=== PATIENT | male | born 1930 | race Caucasian/White ===

== ENCOUNTER 2016-03-01 21:07 | Observation (INO) | payer MEDICARE, OTHER ==
[2016-03-01 22:10] LABS: Basophils % (A) 0 %; CH 30.7; CHCM 34.8; Eosinophils # (A) 0.1 k/uL (0-0.7); Eosinophils % (A) 1 %; HCT 36.6 % (39.0-53.0); HDW 2.26; HGB 12.1 gm/dL (13.0-17.5); Luc # (Auto) 0.18; Luc % (Auto) 3; Lymphocytes # (A) 0.8 k/uL (1.0-4.8); Lymphocytes % (A) 12 %; MCH 29.4 pg (25.0-35.0); MCHC 33.2 g/dL (31.0-37.0); MCV 88.6 fL (80.0-100.0); Mean Platelet Volume 7.8; Monocytes # (A) 0.9 k/uL (0-1.0); Monocytes % (A) 13 %; Neutrophils # (A) 5.2 k/uL (1.3-7.7); Neutrophils % (A) 72 %; RBC 4.13 m/uL (4.30-5.90); WBC 7.2 k/uL (3.8-10.6); WBC (Perox) 7.25
[2016-03-01 22:19] LABS: Calcium 9.2 mg/dL (8.4-10.2); Potassium 3.7 mmol/L (3.5-5.1); Total Bilirubin 0.7 mg/dL (0.2-1.3); Total Protein 6.8 g/dL (6.3-8.2)
--- NOTE | 2016-03-01 22:59 | CT ---
EXAMINATION TYPE: CT brain wo con DATE OF EXAM: 03/01/2016 10:19 PM COMPARISON: 08/10/2015 HISTORY: Patient shows signs of altered mental status. CT DLP: 777.5 mGycm Automated exposure control for dose reduction was used. FINDINGS: There are postsurgical changes in the left parietal temporal area of craniotomy with underlying low d ensity in the left cerebral hemisphere in the left parietal temporal area with encephalomalacia linares es of the brain of chronic nature and is stable. The cortical sulci and ventricles are prominent with age-related atrophic changes of brain with periv entricular white matter ischemic changes with a low density areas. Basal ganglion calcification is no roger bilaterally. The left lateral ventricle is more prominent including temporal horn probably relate d to adjacent postsurgical changes. There is evidence of small lucencies seen in the left zygomatic area soft tissues in the base of the skull in the axial image 1 series 9 and sagittal image 35 and coronal image 33 medial to the left man dibular condyle and is probably related to inflammatory process of oral cavity. This tiny lucencies d oes not appear as pneumocephalus changes. The globes are intact. Mild sinusitis changes of ethmoid sinuses is noted. Mastoid air cells appear grossly unremarkable. IMPRESSION: 1. No acute intracranial hemorrhage, mass effect, or midline shift is seen. 2. Postsurgical changes of craniotomy in the left parietal area. 3. Stable atrophic changes of brain and encephalomalacia changes and postsurgical changes of the brai n. 4. Sinusitis changes. 5. Tiny air collections are suspected in the soft tissues in the base of the skull involving soft tis sues below the level of calvarium medial to the left temporomandibular joint and left mandible condyl e and there is possibility of inflammatory process anterior to the eustachian tube. This does not yair ear as pneumocephalus. A clinical correlation is suggested. A phone report is given to Dr. Mills at the time of the dictation.
[2016-03-01] MEDS ORDERED: AMPICILLIN 2,000 MG in SODIUM CHLORIDE 0.9% 100 ML IVPB STA (23:07)
--- NOTE | 2016-03-01 23:13 | XR ---
EXAMINATION TYPE: XR chest 1V portable DATE OF EXAM: 03/01/2016 10:42 PM COMPARISON: 08/08/2015 HISTORY: Altered mental status TECHNIQUE: Single frontal view of the chest is obtained. Portable study upright FINDINGS: The lower chest is not completely included in the radiograph. Mild chronic interstitial lung changes are suggested bilaterally. Mild atelectatic changes are noted in the right lung base. There is suggestion of mild perihilar pulmonary edema. No definite focal pneu monia is noted. There is moderate cardiomegaly and atherosclerotic calcification in the aortic arch a re present. Moderate to severe arthritic changes in the right shoulder. IMPRESSION: 1. Mild perihilar edema changes and chronic lung changes. 2. Cardiomegaly.
[2016-03-01] MEDS ORDERED: AMPICILLIN-SULBACTAM 3 GM in SODIUM CHLORIDE 0.9% 100 ML IVPB STA (23:18)
[2016-03-01 23:43] LABS: Appearance,Urine Clear (Clear); Bacteria,Urine Rare /hpf; Bilirubin,Urine Negative (Negative); Glucose,Urine (UA) Negative (Negative); Ketones,Urine Negative (Negative); Leukocyte Esterase,Urine Large (Negative); Mucus,Urine Rare /hpf; Nitrite,Urine Positive (Negative); Particle Count 16764; Protein,Urine Trace (Negative); RBC,Urine 2 /hpf (0-5); Specific Gravity,Urine 1.012 (1.001-1.035); Squamous Epithelial Cell,Urine <1 /hpf (0-4); UA Billing (MACRO vs. MICRO) MICRO; Urobilinogen,Urine <2.0 mg/dL (<2.0); WBC,Urine 54 /hpf (0-5)
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
[2016-03-01] MEDS ORDERED: NALOXONE 0.4 MG/ML 1 ML VIAL IV PRN (23:52)
[2016-03-02] MEDS: AMPICILLIN-SULBACTAM 3 GM in SODIUM CHLORIDE 0.9% 100 ML IVPB SCH ×2 (05:41→10:36)
[2016-03-02 08:05] VITALS: BP 156/87; PULSE 92; RESP 19; TEMP 97.7
[2016-03-02 08:33] LABS: Basophils % (A) 0 %; CH 30.4; CHCM 33.7; Eosinophils # (A) 0.1 k/uL (0-0.7); Eosinophils % (A) 1 %; HDW 2.25; HGB 12.1 gm/dL (13.0-17.5); Luc # (Auto) 0.07; Luc % (Auto) 1; Lymphocytes # (A) 0.6 k/uL (1.0-4.8); Lymphocytes % (A) 8 %; MCH 29.6 pg (25.0-35.0); MCHC 32.7 g/dL (31.0-37.0); MCV 90.5 fL (80.0-100.0); Mean Platelet Volume 6.7; Monocytes # (A) 0.5 k/uL (0-1.0); Monocytes % (A) 6 %; Neutrophils # (A) 6.7 k/uL (1.3-7.7); Neutrophils % (A) 84 %; RBC 4.08 m/uL (4.30-5.90); WBC (Perox) 8.64
[2016-03-02] MEDS ORDERED: amLODIPine 10 MG TAB PO SCH (09:00)
[2016-03-02] MEDS ORDERED: levETIRAcetam 500 MG TAB PO SCH (09:00)
[2016-03-02] MEDS ORDERED: MULTIVITAMINS, THERA 1 EACH TAB PO SCH (09:00)
[2016-03-02] MEDS ORDERED: LEVOTHYROXINE 75 MCG TAB PO SCH (09:00)
[2016-03-02] MEDS ORDERED: METOPROLOL TARTRATE 50 MG TAB PO SCH (09:00)
[2016-03-02] MEDS ORDERED: ASPIRIN 81 MG CHEW PO SCH (09:00)
[2016-03-02] MEDS ORDERED: QUEtiapine 25 MG TAB PO SCH ×2 (09:00→12:00)
[2016-03-02] MEDS ORDERED: FENOFIBRATE 160 MG TAB PO SCH (09:00)
[2016-03-02 09:05] LABS: Calcium 8.8 mg/dL (8.4-10.2); Potassium 3.6 mmol/L (3.5-5.1)
[2016-03-02 12:58] VITALS: BMI 13.6
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
--- NOTE | 2016-03-02 13:06 | P.DS ---
Providers Date of admission: 03/01/16 23:52 Expected date of discharge: 03/02/16 Attending physician: Esthela Reza Primary care physician: Jannette Ketty [facility] Course: This is a 85-year-old gentleman with past medical history noted below significant for advanced dementia of Alzheimer's type and history of intracranial bleed approximately 8 years ago status post craniotomy who presented to the emergency room with altered mental status. Patient himself is nonverbal and is only able to answer simple yes or no questions. He is unable to provide any medical history. Medical history was obtained by chart review and nursing staff report. Apparently, patient was brought to the emergency room with worsening confusion at the facility where he resides. He was evaluated in the emergency room and computed tomography scan of the brain showed no acute intracranial findings. There was abnormal findings including tiny air collections reported within the soft tissue at the base of the skull involving soft tissue below the level of the calvarium medial and left mandibular condyle suspected for inflammatory process. Patient was admitted and consultation requested for maxillofacial surgery. Unfortunately, patient is very debilitated and a panoramic x-ray was not done as patient is unable to stand or sit for the x-ray. Given his complicated medical history and his debility he would be treated conservatively. He was started on IV Unasyn and would be discharged home with 7 days course of Augmentin. He would resume his other home medications otherwise. Below is a list of his medical problems: 1. Advanced dementia of Alzheimer's type 2. Dementia with psychotic features: Now stable 3. Physical debility 4. History of intracranial bleed 8 years ago status post craniotomy 5. Essential hypertension 6. Hypothyroidism 7. Mixed hyperlipidemia 8. Paroxysmal atrial fibrillation: Not a candidate for anticoagulation 9. Stage III chronic kidney disease with baseline creatinine around 1.7 Patient Condition at Discharge: Poor Plan - Discharge Summary New Discharge Prescriptions: Amoxic-Pot Clav 875-125Mg [Augmentin 875-125] 1 tab PO Q12HR #14 tablet Discharge Medication List Levothyroxine Sodium [Synthroid] 75 mcg PO DAILY@0600 08/08/15 [History] amLODIPine [Norvasc] 10 mg PO DAILY tab 08/15/15 [Rx] Amoxic-Pot Clav 875-125Mg [Augmentin 875-125] 1 tab PO Q12HR #14 tablet [Rx] Aspirin 81 mg PO HS@1800 03/02/16 [History] Bisacodyl 10 mg RECTAL DAILY PRN 03/02/16 [History] Bisoprolol-Hctz 5-6.25 mg [Ziac 5-6.25] 1 tab PO HS@1800 03/02/16 [History] Ketoconazole 2% Cream [Nizoral 2%] 1 applicate TOPICAL BID@0800,1800 03/02/16 [ History] LORazepam [Ativan] 0.5 mg PO TID PRN 03/02/16 [History] Lorazepam 0.5mg Topical 1 applic TOPICAL BID PRN 03/02/16 [History] Magnesium Hydroxide [Milk of Magnesia] 1,200 mg PO DAILY PRN 03/02/16 [History] Megestrol [Megace] 200 mg PO DAILY@0800 03/02/16 [History] Methylphenidate HCl 20 mg PO DAILY@0800 03/02/16 [History] buPROPion HCL [Wellbutrin SR] 100 mg PO DAILY@0800 03/02/16 [History] levETIRAcetam 500 mg PO BID@0800,1800 03/02/16 [History] risperiDONE [RisperDAL] 1 mg PO BID@0800,1800 03/02/16 [History] traZODone HCL 50 mg PO HS@1800 03/02/16 [History] Follow up Appointment(s)/Referral(s): Jannette Hdez MD [Primary Care Provider] - 1-2 days Discharge Disposition: HOME WITH HOME HEALTH SERVICES
[2016-03-02] MEDS ORDERED: QUEtiapine 200 MG TAB PO SCH (21:00)
== END 2016-03-02 16:24 ==
LOC: EC 21:07 → 4MS4W 23:52
PROVIDERS: ADMIT Internal Medicine; ATTEND Internal Medicine
DX: G30.9 Alzheimer's disease, unspecified (principal); F02.80 Dementia in other diseases classified elsewhere, unspecified severity, without behavioral disturbance, psychotic disturbance, mood disturbance, and anxiety; F06.8 Other specified mental disorders due to known physiological condition; R53.1 Weakness; Z91.83 Wandering in diseases classified elsewhere; I12.9 Hypertensive chronic kidney disease with stage 1 through stage 4 chronic kidney disease, or unspecified chronic kidney disease; N18.3 Chronic kidney disease, stage 3 (moderate); E03.9 Hypothyroidism, unspecified; E78.2 Mixed hyperlipidemia; I48.0 Paroxysmal atrial fibrillation; F32.9 Major depressive disorder, single episode, unspecified; Z87.891 Personal history of nicotine dependence; Z87.820 Personal history of traumatic brain injury; Z79.82 Long term (current) use of aspirin; Z79.899 Other long term (current) drug therapy; Z88.8 Allergy status to other drugs, medicaments and biological substances
CPT/HCPCS: 36415; 94760; 93005; 80053; 80048; 84484; 85025 ×2; 81001; 87040; 87086; 71010; 70450; 99285; 96365; G0378 ×2; J0295 ×2; 87077; 87186; 96366